=== PATIENT | female | born 1950 | race Caucasian/White ===

== ENCOUNTER → 2019-03-04 | Outpatient (CLI) | payer MEDICARE ==
[~2019-03-04] MED LIST: ALEN70TA6 PO; CYCL-259 PO; GABA300C10 PO; LISI2.5T PO; SUCR1TAB PO
[2019-03-04 14:08] LABS: BASOPHILS # (AUTO) 0.03 x10^3/uL (0-0.1); BASOPHILS % (AUTO) 0 % (0-1); EOSINOPHILS % (AUTO) 1 % (1-7); LYMPHOCYTES # (AUTO) 1.31 x10^3/uL (1-3.4); LYMPHOCYTES % (AUTO) 12 % (22-44); MD NO; MEAN CORPUSCULAR HEMOGLOBIN 28.1 pg (27.0-34.8); MEAN CORPUSCULAR HGB CONC 33.8 g/dL (32.4-35.8); MEAN CORPUSCULAR VOLUME 83.3 fL (80-100); MONOCYTES # (AUTO) 0.55 x10^3/uL (0.2-0.8); MONOCYTES % (AUTO) 5 % (2-9); NEUTROPHILS # (AUTO) 8.55 x10^3/uL (1.8-6.8); NEUTROPHILS % (AUTO) 81 % (42-75); PLATELET COUNT 337 x10^3/uL (130-400); RED BLOOD COUNT 4.89 x10^6/uL (3.82-5.3); RED CELL DISTRIBUTION WIDTH 17.5 % (9.6-15.2)
[2019-03-04 14:09] LABS: HCT (SEDRATE) 41.3 % (34.6-47.8)
[2019-03-04 14:16] LABS: MICROSCOPIC NOT IND
[2019-03-04 14:17] LABS: INTERNATIONAL NORMALIZED RATIO 0.98 (0.93-1.1); PROTHROMBIN TIME 10.3 Seconds (9.6-11.5)
[2019-03-04 14:19] LABS: ALANINE AMINOTRANSFERASE 30 U/L (12-78); ALBUMIN 4.8 g/dL (3.4-5.0); ANION GAP 5 mmol/L (5-15); CALCIUM 9.9 mg/dL (8.5-10.1); CHLORIDE 98 mmol/L (98-107); CREATININE 0.87 mg/dL (0.55-1.02)
[2019-03-04 14:21] LABS: ALKALINE PHOSPHATASE 119 U/L (45-117); BILIRUBIN,TOTAL 0.3 mg/dL (0.2-1.0); TOTAL PROTEIN 7.9 g/dL (6.4-8.2)
[2019-03-04 14:24] LABS: CULTURE INDICATED? NO
== END | disposition home or self-care (01) ==
LOC: STAR 12:49
PROVIDERS: ATTEND Orthopaedic Surgery Orthopaedic Surgery of the Spine
DX: Z01.818 Encounter for other preprocedural examination (principal); M48.54XA Collapsed vertebra, not elsewhere classified, thoracic region, initial encounter for fracture; M43.8X4 Other specified deforming dorsopathies, thoracic region
CPT/HCPCS: 36415; 71046; 80053; 80074; 81003; 85025; 85610; 85651; 85730; 87806; 93005; G0475

== ENCOUNTER 2019-03-12 08:20 | Day surgery (SDC) | payer MEDICARE, OTHER ==
[~2019-03-12] VITALS: Ht 167.6 cm; Wt 54.9 kg
[~2019-03-12 08:20] MED LIST changes: +BUPIVACAINE/EPI 0.5% 1:200K ONE; +LIDOCAINE/PF 1%-EPI 1:200K, 30 ML ONE
[2019-03-12] MEDS ORDERED: LACTATED RINGERS 1,000 ML IV SCH (08:46)
[2019-03-12] MEDS ORDERED: LIDOCAINE 1%-EPI 1:100K, 20ML ONE (08:56)
[2019-03-12] MEDS ORDERED: BUPIVACAINE/PF 0.5% ONE (08:56)
[2019-03-12 09:12] VITALS: BP 126/79
[2019-03-12] MEDS ORDERED: PROPOFOL 10 MG/ML, 20ML ONE (09:38)
[2019-03-12] MEDS ORDERED: GLYCOPYRROLATE 0.2MG/1ML, 5ML ONE (09:38)
[2019-03-12] MEDS ORDERED: ROCURONIUM 10MG/ML,5ML ONE (09:38)
[2019-03-12] MEDS ORDERED: DEXAMETHASONE 4 MG/ML, 1ML ONE (09:38)
[2019-03-12] MEDS ORDERED: FENTANYL PF 250 MCG/5ML ONE (09:39)
[2019-03-12] MEDS ORDERED: MIDAZOLAM 1 MG/ML, 2ML ONE (09:39)
[2019-03-12] MEDS ORDERED: CEFAZOLIN 1,000 MG ONE (10:30)
[2019-03-12] MEDS ORDERED: OMNIPAQUE 180 MG/ML, 20ML VIAL ONE (11:36)
[2019-03-12] MEDS ORDERED: PHENYLEPHRINE 10 MG/ML ONE (11:51)
== END 2019-03-12 14:00 | disposition home or self-care (01) ==
LOC: OUT 08:20
PROVIDERS: ATTEND Orthopaedic Surgery Orthopaedic Surgery of the Spine
DX: M48.54XA Collapsed vertebra, not elsewhere classified, thoracic region, initial encounter for fracture (principal); M40.204 Unspecified kyphosis, thoracic region; I10 Essential (primary) hypertension; Z91.040 Latex allergy status
CPT/HCPCS: 22513; 72080; 88307; 88311; C1713; J0690; J1100; J2250; J2370; J2704; J3010; J3490; J7120; Q9965

== ENCOUNTER 2019-03-16 11:47 | Emergency (ER) | payer MEDICARE, OTHER ==
[~2019-03-16] VITALS: Ht 167.6 cm; Wt 59.0 kg
[~2019-03-16 11:47] MED LIST changes: -BUPIVACAINE/EPI 0.5% 1:200K ONE; -LIDOCAINE/PF 1%-EPI 1:200K, 30 ML ONE
--- NOTE | 2019-03-16 13:03 | NUR ---
Assumed care of patient. Patient had kyphoplasty last week and ever since has had a cold sensation in her ABD, chest, neck and head. Also has C/O [place], lightheadedness, and generalized weakness. NAD. Will continue to monitor.
[2019-03-16 13:19] LABS: BASOPHILS # (AUTO) 0.02 x10^3/uL (0-0.1); BASOPHILS % (AUTO) 0 % (0-1); EOSINOPHILS # (AUTO) 0.05 x10^3/uL (0-0.4); EOSINOPHILS % (AUTO) 1 % (1-7); LYMPHOCYTES # (AUTO) 0.88 x10^3/uL (1-3.4); LYMPHOCYTES % (AUTO) 12 % (22-44); MD NO; MEAN CORPUSCULAR HEMOGLOBIN 28.7 pg (27.0-34.8); MEAN CORPUSCULAR HGB CONC 33.7 g/dL (32.4-35.8); MEAN CORPUSCULAR VOLUME 85.3 fL (80-100); MEAN PLATELET VOLUME 6.7 fL (7.4-10.4); MONOCYTES # (AUTO) 0.36 x10^3/uL (0.2-0.8); MONOCYTES % (AUTO) 5 % (2-9); NEUTROPHILS # (AUTO) 6.23 x10^3/uL (1.8-6.8); NEUTROPHILS % (AUTO) 83 % (42-75); PLATELET COUNT 323 x10^3/uL (130-400); RED BLOOD COUNT 4.76 x10^6/uL (3.82-5.3); RED CELL DISTRIBUTION WIDTH 17.4 % (9.6-15.2)
[2019-03-16 13:27] LABS: ALBUMIN 4.5 g/dL (3.4-5.0); ANION GAP 5 mmol/L (5-15); CALCIUM 9.8 mg/dL (8.5-10.1); CHLORIDE 100 mmol/L (98-107); CREATININE 0.72 mg/dL (0.55-1.02)
[2019-03-16 13:31] LABS: TROPONIN I < 0.015 ng/mL (0.000-0.045)
[2019-03-16 14:27] VITALS: BP 165/98
[2019-03-16 14:45] LABS: MICROSCOPIC NOT IND
[2019-03-16 14:48] LABS: CULTURE INDICATED? NO
== END 2019-03-16 15:33 | disposition home or self-care (01) ==
LOC: ED 12:27
DX: R07.89 Other chest pain (principal); I10 Essential (primary) hypertension
CPT/HCPCS: 36415; 71045; 80048; 81003; 82040; 84484; 85025; 93005; 99284